=== PATIENT | female | born 1980 | race Two or more races ===

== ENCOUNTER 2025-04-23 08:53 | Day surgery (SDC) | payer BC ==
[2025-04-23] MEDS ORDERED: ANESTHESIA TRAY IN PYXIS 1 EA TRAY MC ONE (09:38)
[2025-04-23] MEDS ORDERED: MIDAZOLAM HCL 2 MG/2ML VIAL ONE (09:40)
[2025-04-23] MEDS ORDERED: FENTANYL PF 100MCG/2ML AMPUL ONE (09:40)
[2025-04-23] MEDS ORDERED: CLINDAMYCIN IV RTU IN D5W 50 ML ONE (10:41)
[2025-04-23] MEDS ORDERED: SILVER NITRATE APPLICATOR 1 EA BOX ONE (10:54)
== END 2025-04-23 14:20 | disposition home or self-care (01) ==
LOC: DS 08:53
PROVIDERS: ATTEND Obstetrics & Gynecology
DX: D25.9 Leiomyoma of uterus, unspecified (principal); N92.1 Excessive and frequent menstruation with irregular cycle; Z88.0 Allergy status to penicillin; Z88.4 Allergy status to anesthetic agent; Z98.891 History of uterine scar from previous surgery; Z79.899 Other long term (current) drug therapy; Z98.890 Other specified postprocedural states
CPT/HCPCS: 58563; 71045; 88300; 88305; 93005; A4217; A4338; J1100; J2250; J2405; J2704; J2765; J3010; J3490; J7030